=== PATIENT | male | born 1985 | race Caucasian/White ===

== ENCOUNTER 2021-03-26 15:05 | Emergency (ER) | payer OTHER ==
--- NOTE | 2021-03-26 18:08 | US ---
Limited abdominal ultrasound: Multiple real-time images were obtained of the right upper abdomen. Technologist's note: Very limited exam and technically difficult due to body habitus Comparison: No prior abdominal imaging is available. Findings: Liver is very echogenic presumably due to diffuse fatty infiltration. Gallbladder contains no shadowing gallstones. No gallbladder wall thickening is seen. Common hepatic duct is normal. Common bile duct is not visualized. Right kidney shows no hydronephrosis or discrete mass. Right kidney has a length of 11.8 cm. Pancreas is obscured. Proximal aorta is obscured. Inferior vena cava is obscured. Main portal vein shows normal hepatopedal flow. Impression: 1. Echogenic liver compatible with fatty infiltration. 2. No gallstones are seen. No gallbladder wall thickening is seen. Common hepatic duct shows no dilatation. 3. Pancreas, proximal aorta and inferior vena cava are obscured. Common bile duct is also obscured. Diagnostic code #2
--- NOTE | 2021-03-26 18:43 | EDM.PDOC ---
ED HPI GENERAL MEDICAL PROBLEM - General Chief Complaint: Abdominal Pain Stated Complaint: SWELLING AND RED PATCHES ALL OVER BODY Time Seen by Provider: 03/26/21 17:08 Source of Information: Reports: Patient, RN Notes Reviewed History Limitations: Reports: No Limitations - History of Present Illness INITIAL COMMENTS - FREE TEXT/NARRATIVE: Patient is a 36-year-old male presenting to the emergency department with complaints of recurrent rash which is scattered throughout his body as well as right upper quadrant abdominal pain which he states has been fairly recurring over the last few months. Reports that he was evaluated in the clinic on one occasion for his rash and put on prednisone which she states did cure the rash after 2 days of treatment. Once he finished treatment, however, the rash did recur. He has not been evaluated with regards to his abdominal pain. Denies any hematemesis or hematochezia. He has had no vomiting. He does not have a primary care provider. 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 x one year, has not been seen for this problem Cardiovascular History: Reports: Angina, Hypertension Other Cardiovascular History: Angina without dx of CVD Respiratory History: Reports: Asthma Gastrointestinal History: Reports: Hiatal Hernia Other Gastrointestinal History: 2000 Genitourinary History: Reports: None Other Musculoskeletal History: [place] nip B/L toes and feet 2020 Neurological History: Reports: None Psychiatric History: Reports: None Endocrine/Metabolic History: Reports: None Hematologic History: Reports: None Immunologic History: Reports: None Oncologic (Cancer) History: Reports: None Other Dermatologic History: chronic blotchy patches with swelling - Infectious Disease History Infectious Disease History: Reports: None - Past Surgical History Head Surgeries/Procedures: Reports: None Respiratory Surgical History: Reports: None Neurological Surgical History: Reports: None ED ROS GENERAL - Review of Systems Review Of Systems: Comprehensive ROS is negative, except as noted in HPI. ED EXAM, GI/ABD - Physical Exam Exam: See Below Exam Limited By: No Limitations General Appearance: Alert, WD/WN, No Apparent Distress Respiratory/Chest: No Respiratory Distress, Lungs Clear, Normal Breath Sounds, No Accessory Muscle Use, Chest Non-Tender Cardiovascular: Normal Peripheral Pulses, Regular Rate, Rhythm, No Edema, No Gallop, No JVD, No Murmur, No Rub GI/Abdominal Exam: Normal Bowel Sounds, Soft, No Organomegaly, No Distention, No Abnormal Bruit, No Mass, Pelvis Stable, Tender (Epigastric and right upper quadrant) Neurological: Alert, Oriented, CN II-XII Intact, Normal Cognition, Normal Gait, Normal Reflexes, No Motor/Sensory Deficits Psychiatric: Normal Affect, Normal Mood Skin Exam: Rash Course - Vital Signs Last Recorded V/S: Last Vital Signs Temp 98.2 F 03/26/21 16:36 Pulse 105 H 03/26/21 16:36 Resp 18 03/26/21 16:36 BP 155/115 H 03/26/21 16:36 Pulse Ox - Orders/Labs/Meds Labs: Laboratory Tests 03/26/21 03/26/21 Range/Units 17:59 17:59 WBC 9.42 H (4.23-9.07) K/mm3 RBC 5.47 (4.63-6.08) M/mm3 Hgb 16.2 (13.7-17.5) gm/dl Hct 48.5 (40.1-51.0) % MCV 88.7 (79.0-92.2) fl MCH 29.6 (25.7-32.2) pg MCHC 33.4 (32.2-35.5) g/dl RDW Std Deviation 45.1 H (35.1-43.9) fL Plt Count 252 (163-337) K/mm3 MPV 9.5 (9.4-12.3) fl Neut % (Auto) 64.4 (34.0-67.9) % Lymph % (Auto) 24.1 (21.8-53.1) % [place] % (Auto) 7.6 (5.3-12.2) % Eos % (Auto) 3.4 (0.8-7.0) Baso % (Auto) 0.2 (0.1-1.2) % Neut # (Auto) 6.06 H (1.78-5.38) K/mm3 Lymph # (Auto) 2.27 (1.32-3.57) K/mm3 [place] # (Auto) 0.72 (0.30-0.82) K/mm3 Eos # (Auto) 0.32 (0.04-0.54) K/mm3 Baso # (Auto) 0.02 (0.01-0.08) K/mm3 Sodium 137 (136-145) mEq/L Potassium 4.2 (3.5-5.1) mEq/L Chloride 102 (98-107) mEq/L Carbon Dioxide 26 (21-32) mEq/L Anion Gap 13.2 (5-15) BUN 15 (7-18) mg/dL Creatinine 0.8 (0.7-1.3) mg/dL Est Cr Clr Drug Dosing 138.57 mL/min Estimated GFR (MDRD) > 60 (>60) mL/min BUN/Creatinine Ratio 18.8 H (14-18) Glucose 87 (70-99) mg/dL Calcium 8.8 (8.5-10.1) mg/dL Total Bilirubin 0.5 (0.2-1.0) mg/dL AST 53 H (15-37) U/L ALT 123 H (16-63) U/L Alkaline Phosphatase 71 (46-116) U/L Total Protein 7.8 (6.4-8.2) g/dl Albumin 3.7 (3.4-5.0) g/dl Globulin 4.1 gm/dL Albumin/Globulin Ratio 0.9 L (1-2) Lipase 89 (73-393) U/L - Re-Assessments/Exams Free Text/Narrative Re-Assessment/Exam: Patient is a 36-year-old male presenting to the emergency department for evaluation with regards to recurrent rash and 5-month history of recurrent epigastric and right upper quadrant abdominal pain. Reports he has been treated with prednisone in the past and it did resolve his symptoms, however they recurred. He is not currently taking a PPI or an H2 graham. On exam, he has small hives to his bilateral forearms and bilateral ankles. He showed me pictures of previous outbreaks and the rash is definitely consistent with urticaria. Patient will be started on prednisone for treatment of this. He shou ld follow-up in the clinic. With regards to abdominal pain, have ordered blood work and right upper quadrant ultrasound. 03/26/21 18:59 Hematology significant for an AST elevated 53, ALT 123. Ultrasound report impression as follows: 1. Echogenic liver compatible with fatty infiltration. 2. No gallstones are seen. No gallbladder wall thickening is seen. Common hepatic duct shows no dilatation. 3. Pancreas, abdominal aorta, and inferior vena cava are obscured. Common bile duct is also obscured. Results discussed with patient. I feel his epigastric pain is likely related to GERD. He reports it has improved with antacids in the past. We will have him start omeprazole daily. I will also do a course of Carafate for 10 days. He was started on prednisone for treatment of urticaria. I will send referral to Dr. Laurie Dickens in the clinic for follow-up. He is in agreement with this plan. Discharge instructions as documented. 03/26/21 19:07 Patient is requesting a refill on his albuterol inhaler. I will send prescription for this. Departure - Departure Time of Disposition: 18:59 Disposition: Home, Self-Care 01 Condition: Good Clinical Impression: Hives GERD (gastroesophageal reflux disease) Qualifiers: Esophagitis presence: esophagitis presence not specified Qualified Code(s): K21.9 - Gastro-esophageal reflux disease without esophagitis - Discharge Information *PRESCRIPTION DRUG MONITORING PROGRAM REVIEWED*: No *COPY OF PRESCRIPTION DRUG MONITORING REPORT IN PATIENT OBINNA: No Prescriptions: Albuterol Sulfate [Albuterol Sulfate HFA] 2 puff INH Q4H PRN #1 ea PRN Reason: Wheezing Sucralfate [Carafate] 1 gm PO ACBED 10 Days #40 tab predniSONE [Prednisone] 20 mg PO ASDIRECTED #15 tablet Instructions: Hives, Gastroesophageal Reflux Disease, Adult, [id number] Referrals: PCP,None [Primary Care Provider] - Forms: ED Department Discharge Additional Instructions: You were seen in the emergency department today for evaluation of recurrent rash as well as upper abdominal pain. Work-up included blood work and ultrasound of your right upper abdomen. Results of your work-up showed you have some slightly elevated liver enzymes, likely related to alcohol consumption. Ultrasound was found to be overall normal with the exception of fatty liver. The cause of your upper abdominal pain is likely related to gastroesophageal reflux disease (GERD). Recommend that you begin taking omeprazole daily. This may be purchased [id number]. Prescription for Carafate has been sent to your pharmacy. You have also been started on prednisone for treatment of rash. Take these medications as prescribed. Referral has been sent to Dr. Laurie Dickens MD. Contact her office tomorrow morning to set up a follow-up visit for approximately 10 days from now. Return to ER as needed. Sepsis Event Note (ED) - Focused Exam Vital Signs: Vital Signs Temp Pulse Resp BP 03/26/21 16:36 98.2 F 105 H 18 155/115 H
== END 2021-03-26 19:35 | disposition home or self-care (01) ==
LOC: JD.ED 15:05
DX: L50.9 Urticaria, unspecified (principal); K21.9 Gastro-esophageal reflux disease without esophagitis; I10 Essential (primary) hypertension
CPT/HCPCS: 36415; 76705; 76705-26; 80053; 83690; 85025; 99283; 99284-25

== ENCOUNTER 2024-04-18 04:56 | Emergency (ER) | payer BC ==
[2024-04-18] MEDS: Hyoscyamine 0.125 MG Tab.SL SL ONE (05:42)
[2024-04-18] MEDS: Metoclopramide 10 MG/2 ML SDV IVPUSH ONE (05:43)
[2024-04-18] MEDS: HYDROmorphone 1 MG/ML Syringe IVPUSH ONE (05:46)
[2024-04-18 05:56] LABS: BASOPHILS PERCENT AUTO 0.2 % (0.0-1.0); EOSINOPHILS PERCENT AUTO 0.3 % (0.0-6.0); HEMATOCRIT 50.3 % (42.0-52.0); HEMOGLOBIN 16.1 gm/dl (14.0-18.0); IMMATURE GRAN ABSOLUTE AUTO 0.16 K/mm3 (0.00-0.05); IMMATURE GRAN PERCENT AUTO 1.5 % (0.0-0.4); LYMPHOCYTES ABSOLUTE AUTO 1.2 K/mm3 (1.0-4.8); LYMPHOCYTES PERCENT AUTO 11.4 % (24.0-44.0); MEAN CORPUSCULAR HEMOGLOBIN 28.8 pg (28.0-32.0); MEAN CORPUSCULAR VOLUME 89.8 fl (83.0-99.0); MEAN PLATELET VOLUME 9.9 fl (9.4-12.4); MONOCYTES ABSOLUTE AUTO 0.7 K/mm3 (0.0-0.8); NEUTROPHILS ABSOLUTE AUTO 8.4 K/mm3 (1.8-7.7); NEUTROPHILS PERCENT AUTO 79.6 % (41.0-71.0); PLATELET COUNT,PLT 236 K/mm3 (150-400); WHITE BLOOD CELL COUNT,WBC 10.56 K/mm3 (3.9-11.3)
[2024-04-18 06:08] LABS: LACTIC ACID 1.4 mmol/L (0.4-2.0)
[2024-04-18 06:15] LABS: A/G RATIO 1.1 (1-2); ALANINE AMINOTRANSFERASE,ALT 63 U/L (16-63); ALBUMIN 3.8 g/dl (3.4-5.0); ALKALINE PHOSPHATASE 46 U/L (46-116); ANION GAP 12.1 (5-15); ASPARTATE AMNIOTRANSFERASE,AST 15 U/L (15-37); BILIRUBIN TOTAL 0.3 mg/dL (0.2-1.0); BLOOD UREA NITROGEN,BUN 19 mg/dL (7-18); BUN/CREATININE RATIO 17.3 (14-18); CALCIUM 9.5 mg/dL (8.5-10.1); CARBON DIOXIDE,CO2 31 mEq/L (21-32); CHLORIDE,CL 103 mEq/L (98-107); CREATININE 1.1 mg/dL (0.7-1.3); EST CRCL DRUG DOSING (CG) 97.93 mL/min; ESTIMATED GFR 89 mL/min (>60); GLUCOSE RANDOM 127 mg/dL (70-99); LIPASE 23 U/L (16-77); MAGNESIUM 2.2 mg/dL (1.8-2.4); POTASSIUM,K 5.1 mEq/L (3.5-5.1); PROTEIN TOTAL,TP 7.3 g/dl (6.4-8.2); SODIUM,NA 141 mEq/L (136-145)
[2024-04-18 06:16] LABS: C-REACTIVE PROTEIN < 0.05 mg/dL (<0.30); TROPONIN I HIGH SENSITIVITY < 4 pg/mL (<=76)
[2024-04-18] MEDS: Sodium Chloride 0.9% 1,000 ML IV SCH (06:32)
[2024-04-18] MEDS: Iopamidol 612 MG/ML 30 ML SDV IVPUSH ONE (06:43)
[2024-04-18] MEDS: Iopamidol 612 MG/ML 100 ML Bottle IVPUSH ONE (06:44)
[2024-04-18 06:48] LABS: APPEARANCE,URINE CLEAR (Clear); BILIRUBIN,URINE NEGATIVE (Negative); COLOR,URINE YELLOW (Yellow); GLUCOSE,URINE NEGATIVE (Negative); KETONES,URINE NEGATIVE (Negative); LEUKOCYTE ESTERASE,URINE NEGATIVE (Negative); NITRITE,URINE NEGATIVE (Negative); OCCULT BLOOD,URINE NEGATIVE (Negative); PH,URINE 7.5 (5.0-8.0); PROTEIN,URINE NEGATIVE (Negative); UROBILINOGEN,URINE 0.2 (0.2-1.0)
[2024-04-18 07:28] LABS: HEMOGLOBIN A1C 5.8 %
== END 2024-04-18 08:20 | disposition home or self-care (01) ==
LOC: JD.ED 04:56
DX: S39.011A Strain of muscle, fascia and tendon of abdomen, initial encounter (principal); I10 Essential (primary) hypertension; J45.909 Unspecified asthma, uncomplicated; Z79.52 Long term (current) use of systemic steroids; Z79.51 Long term (current) use of inhaled steroids; Z79.899 Other long term (current) drug therapy; X58.XXXA Exposure to other specified factors, initial encounter
CPT/HCPCS: 36415; 74177; 80053; 81003; 83036; 83605; 83690; 83735; 83880; 84484; 85025; 86140; 93005; 96374; 96375; 99284; A9270; J1171; J2765; J7030; Q9967

== ENCOUNTER 2024-10-25 16:01 | Emergency (ER) | payer BC, MEDICARE ==
[2024-10-25] MEDS: Sodium Chloride 0.9% 1,000 ML IV STA (16:56)
[2024-10-25] MEDS: Ondansetron 4 MG/2 ML SDV IVPUSH ONE (17:00)
[2024-10-25 17:02] LABS: BASOPHILS ABSOLUTE AUTO 0.1 K/mm3 (0.0-0.2); BASOPHILS PERCENT AUTO 0.8 % (0.0-1.0); EOSINOPHILS ABSOLUTE AUTO 0.2 K/mm3 (0.0-0.4); EOSINOPHILS PERCENT AUTO 1.2 % (0.0-6.0); HEMATOCRIT 46.9 % (42.0-52.0); HEMOGLOBIN 15.7 gm/dl (14.0-18.0); IMMATURE GRAN ABSOLUTE AUTO 0.75 K/mm3 (0.00-0.05); IMMATURE GRAN PERCENT AUTO 6.1 % (0.0-0.4); LYMPHOCYTES ABSOLUTE AUTO 2.3 K/mm3 (1.0-4.8); LYMPHOCYTES PERCENT AUTO 18.6 % (24.0-44.0); MEAN CORPUSCULAR HEMOGLOBIN 30.4 pg (28.0-32.0); MEAN CORPUSCULAR HGB CONC 33.5 g/dl (32.0-36.0); MEAN CORPUSCULAR VOLUME 90.7 fl (83.0-99.0); MEAN PLATELET VOLUME 9.4 fl (9.4-12.4); MONOCYTES ABSOLUTE AUTO 1.1 K/mm3 (0.0-0.8); NEUTROPHILS PERCENT AUTO 64.3 % (41.0-71.0); PLATELET COUNT,PLT 268 K/mm3 (150-400); RED BLOOD CELL COUNT 5.17 M/mm3 (4.52-5.90); WHITE BLOOD CELL COUNT,WBC 12.39 K/mm3 (3.9-11.3)
[2024-10-25 17:20] LABS: A/G RATIO 0.9 (1-2); ALBUMIN 2.8 g/dl (3.4-5.0); ANION GAP 15.3 (5-15); BILIRUBIN TOTAL 0.3 mg/dL (0.2-1.0); BUN/CREATININE RATIO 9.2 (14-18); CALCIUM 7.7 mg/dL (8.5-10.1); CREATININE 1.2 mg/dL (0.7-1.3); EST CRCL DRUG DOSING (CG) 87.03 mL/min; MAGNESIUM 1.1 mg/dL (1.8-2.4); POTASSIUM,K 3.3 mEq/L (3.5-5.1)
[2024-10-25] MEDS: Magnesium Sulf/Wat 2 GM/50 mL 2 GM/50 ML BAG IV ONE (17:35)
[2024-10-25] MEDS: Sodium Chloride 0.9% 10 ML Syringe FLUSH PRN (18:01)
[2024-10-25] MEDS: Iopamidol 612 MG/ML 100 ML Bottle IVPUSH ONE (18:01)
[2024-10-25] MEDS: Sodium Chloride 0.9% 1,000 ML IV ONE (18:01)
== END 2024-10-25 19:58 | disposition home or self-care (01) ==
LOC: JD.ED 16:01
DX: E83.42 Hypomagnesemia (principal); I10 Essential (primary) hypertension; J45.909 Unspecified asthma, uncomplicated; Z79.899 Other long term (current) drug therapy
CPT/HCPCS: 36415; 74177; 74177-26; 80053; 82550; 83605; 83690; 83735; 85025; 87428-QW; 96361; 96365; 96366; 96375; 99283; 99284-25; J2405; J3475; J7030; Q9967

== ENCOUNTER 2025-03-27 13:58 | Emergency (ER) | payer MEDICARE, OTHER ==
[2025-03-27] MEDS ORDERED: Sodium Chloride 0.9% 10 ML Syringe FLUSH PRN (14:40)
[2025-03-27 15:14] LABS: BASOPHILS ABSOLUTE AUTO 0.1 K/mm3 (0.0-0.2); BASOPHILS PERCENT AUTO 0.4 % (0.0-1.0); EOSINOPHILS ABSOLUTE AUTO 0.0 K/mm3 (0.0-0.4); EOSINOPHILS PERCENT AUTO 0.1 % (0.0-6.0); IMMATURE GRAN ABSOLUTE AUTO 0.94 K/mm3 (0.00-0.05); IMMATURE GRAN PERCENT AUTO 6.7 % (0.0-0.4); LYMPHOCYTES ABSOLUTE AUTO 1.7 K/mm3 (1.0-4.8); LYMPHOCYTES PERCENT AUTO 11.8 % (24.0-44.0); MEAN PLATELET VOLUME 9.6 fl (9.4-12.4); MONOCYTES ABSOLUTE AUTO 0.8 K/mm3 (0.0-0.8); MONOCYTES PERCENT AUTO 5.7 % (0.0-8.0); NEUTROPHILS ABSOLUTE AUTO 10.6 K/mm3 (1.8-7.7); NEUTROPHILS PERCENT AUTO 75.3 % (41.0-71.0); NRBC ABSOLUTE 0.02 (0.00-0.02); NRBC PERCENT 0.1 % (0.0-0.2); PLATELET COUNT,PLT 210 K/mm3 (150-400); RED BLOOD CELL COUNT 5.11 M/mm3 (4.52-5.90); WHITE BLOOD CELL COUNT,WBC 14.07 K/mm3 (3.9-11.3)
[2025-03-27 15:20] LABS: APPEARANCE,URINE SLT CLOUDY (Clear); GLUCOSE,URINE NEGATIVE (Negative); OCCULT BLOOD,URINE NEGATIVE (Negative)
[2025-03-27 15:35] LABS: A/G RATIO 1.0 (1-2); ALANINE AMINOTRANSFERASE,ALT 163.0 U/L (16-63); ASPARTATE AMNIOTRANSFERASE,AST 34.0 U/L (15-37); BILIRUBIN TOTAL 0.3 mg/dL (0.2-1.0); BLOOD UREA NITROGEN,BUN 23.0 mg/dL (7-18); CARBON DIOXIDE,CO2 25.0 mEq/L (21-32); CHLORIDE,CL 103.0 mEq/L (98-107); CREATININE 0.8 mg/dL (0.7-1.3); EST CRCL DRUG DOSING (CG) 129.27 mL/min; ESTIMATED GFR 116.0 mL/min (>60); GLUCOSE RANDOM 179.0 mg/dL (70-99); PROTEIN TOTAL,TP 6.5 g/dl (6.4-8.2); SODIUM,NA 141.0 mEq/L (136-145)
[2025-03-27 15:50] LABS: POTASSIUM,K 4.3 mEq/L (3.5-5.1)
[2025-03-27 16:14] LABS: EPITHELIAL CELLS,URINE 0-5 /hpf (0-5)
[2025-03-27] MEDS: Sodium Chloride 0.9% 10 ML Syringe FLUSH ONE (16:21)
[2025-03-27] MEDS: Iopamidol 612 MG/ML 100 ML Bottle IVPUSH ONE (16:21)
== END 2025-03-27 18:06 | disposition home or self-care (01) ==
LOC: JD.ED 13:58
DX: S22.9XXA Fracture of bony thorax, part unspecified, initial encounter for closed fracture (principal); I10 Essential (primary) hypertension; X58.XXXA Exposure to other specified factors, initial encounter
CPT/HCPCS: 36415; 74177; 80053; 81001; 83690; 85025; 96361; 96374; 99284; J1171; J7030; Q9967